=== PATIENT | female | born 1970 | race Caucasian/White ===

== ENCOUNTER 2018-04-11 11:08 | Emergency (ER) | payer BC ==
[~2018-04-11] VITALS: Ht 167.6 cm; Wt 104.9 kg
[2018-04-11] MEDS ORDERED: IBUPROFEN 600 MG TAB PO STA (14:21)
[2018-04-11] MEDS ORDERED: TETANUS/DIPHTHERIA TOX ADULT 0.5 ML SYR IM ONE (14:30)
== END 2018-04-11 14:25 | disposition home or self-care (01) ==
LOC: FSED 11:08
CPT/HCPCS: 90714; 96372; 99283

== ENCOUNTER 2018-04-25 12:23 | Emergency (ER) | payer BC ==
[~2018-04-25] VITALS: Ht 167.6 cm; Wt 103.4 kg
--- OUTSIDE RECORDS SUMMARY | 2018-04-25 12:25 | XMS REPORT | Continuity of Care Document ---
Author Author [facility] Organization [facility] Address [address] [place] [address] Phone Unavailable Care Team Providers Care Dispatcher Motor Vehicle Name Role Phone NONSTAFF PCP Unavailable Insurance Providers Guarantor Alexa Pham Address [address] [place] [address] Email [email or web address] Payer [facility] Policy Number [id number] Subscriber's Name Alexa Cool A Relationship 21 Unknown Effective Date 15 Advance Directives Directive Response Recorded Date/Time Does the patient have an advance directive? No 04/11/18 1:15pm If yes, is advance directive on file with [facility]? No 04/11/18 1:15pm If not on file with [facility] will patient provide a copy? No 04/11/18 1:15pm Do you have a Directive to Physician? No 04/11/18 1:15pm Do you have a Medical Power of Ammonia Still Operator? No 04/11/18 1:15pm Do you have an out of hospital Do Not Resuscitate Order? No 04/11/18 1:15pm Do you have any special needs we should be aware of? No 04/11/18 1:15pm Do you have a support person here with you today? Yes 04/11/18 1:15pm Did patient receive Notice of Privacy Practices? Yes 04/11/18 1:15pm Did patient receive patient rights and responsibilities? Yes 04/11/18 1:15pm Problems No problem information available. Medications No medication information available. Social History Smoking Status Start Date Stop Date Current some day smoker Hospital Discharge Instructions No hospital discharge instruction information available. Plan of Care Discharge Date 04/11/18 2:25pm Disposition HOME, SELF-CARE Condition at Discharge Improved Instructions/Education Provided Laceration Forms Provided Work/School Excuse Prescriptions See Medication Section Functional Status No functional status information available. Allergies, Adverse Reactions, Alerts No allergy information available. Immunizations No immunization information available. Vital Signs Acute Vital Signs Vital Response Date/Time Height 5 ft 6 in 04/11/2018 11:15am Weight 231.38 lb 04/11/2018 11:15am Body Mass Index 37.3 kg/m^2 04/11/2018 11:15am Results No relevant diagnostic test, laboratory data and/or discharge summary information available. Procedures No procedure information available. Encounters Encounter Location Arrival/Admit Date Discharge/Depart Date Attending Provider Departed Emergency Room [facility] 04/11/18 11:08am 04/11 2:25pm IMAN NOLASCO MD
== END 2018-04-25 12:35 | disposition home or self-care (01) ==
LOC: FSED 12:23
DX: Z48.02 Encounter for removal of sutures (principal)
CPT/HCPCS: 99282

== ENCOUNTER → 2020-10-25 | Outpatient (CLI) | payer BC ==
--- NOTE | 2020-11-01 02:14 | Polysomnography ---
DATE OF STUDY: 10/25/2020 REFERRING PHYSICIAN: Yuriy Pan MD DATE OF INTERPRETATION: 10/31/2020. PROCEDURE: Interpretation of home sleep test. INTERPRETING PHYSICIAN: Yuriy Pan MD. IMPRESSION: Mild obstructive sleep apnea with associated arterial oxygen desaturations with AHI of 13.4. RECOMMENDATIONS: Initiate titration for continuous positive airway pressure therapy (CPAP). ENT evaluation to consider surgical options to correct sleep-disordered breathing. Avoid consumption of alcohol or sedatives before bedtime. Avoid caffeine and exercise within 3 to 4 hours prior to bedtime. Weight reduction to ideal body weight. Advised the patient that excessive daytime sleepiness could pose a danger to the patient and others while driving or operating heavy machinery, and to use caution until symptoms are treated and improved. The patient to follow up with physician to discuss results of study. Yuriy Pan MD JKY/MODL /[id number]
== END ==
LOC: SLEEP 18:39
PROVIDERS: ATTEND Otolaryngology
DX: G47.33 Obstructive sleep apnea (adult) (pediatric) (principal); Z01.812 Encounter for preprocedural laboratory examination; Z20.828 Contact with and (suspected) exposure to other viral communicable diseases
CPT/HCPCS: 95806; U0002